=== PATIENT | female | born 1955 | race Caucasian/White ===

== ENCOUNTER 2017-02-07 08:40 | Emergency (ER) | payer MEDICAID ==
[~2017-02-07] VITALS: Wt 72.6 kg
[~2017-02-07 08:40] MED LIST: ABILIFY10 MG PO; ALBUTEROL2.5 MG/0.5 INH; ALLERGY10 MG PO; AMOXICILLIN500 MG PO; ANUSOL TP; ASCRIPTIN ENTER81 MG PO; BACTRIM DS 8001 TA1 PO; BACTROBAN2% TP; CATAFLAM50 MG PO; CLONAZEPAM2 MG PO; DEPAKOTE500 MG PO; DOCUSATE SODIUM1 TAB PO; DULE1ARO1 INH; HALOPERIDOL1 MG PO; KLONOPIN2 MG PO; LIPITOR40 MG PO; LISINOPRIL10 MG PO; LISINOPRIL40 MG PO; LOPRESSOR25 MG PO; LOVASTATIN40 MG PO; MULTIVITAMIN1 TA1 PO; NAPROXEN500 MG PO; NORFLEX100 MG PO; PREDNICOT20 MG PO; PROAIR HFA0.09 MG/AC INH; VISTARIL25 MG PO; VOLTAREN50 M1 PO; ZOFRAN ODT4 MG SL
[2017-02-07 09:44] LABS: BASO % 0.3 % (0.0-1.0); EOS % 0.3 % (1.0-4.0); HEMATOCRIT 40.3 % (37.0-47.0); IG # 0.1 10*3/uL (0.0-0.1); LYMPH # 1.3 10*3/uL (1.3-4.4); MEAN CORPUSCULAR HGB 30.9 pg (27.0-31.0); MEAN CORPUSCULAR HGB CONC 34.7 g/dl (33.0-37.0); MEAN PLATELET VOLUME 9.2 fl (9.6-12.3); MONO # 0.9 10*3/uL (0.1-1.0); MONO % 7.6 % (3.0-9.0); NEUT # 9.5 10*3/uL (2.3-7.9); NEUT % 80.4 % (47.0-73.0); PLATELET COUNT AUTOMATED 189 10*3/uL (130-400); RED BLOOD COUNT 4.53 10*6/uL (4.10-5.10); RED CELL DISTRI WIDTH 13.2 % (0-14.5); WHITE BLOOD COUNT 11.8 10*3/uL (4.8-10.8)
[2017-02-07 09:53] LABS: INTERNATIONAL NORM RATIO 1.1 (2.0-3.5); PROTHROMBIN TIME 11.6 SECONDS (9.0-12.4)
[2017-02-07 09:54] LABS: BILIRUBIN NEGATIVE (NEGATIVE); BLOOD TRACE-INTACT (NEGATIVE); CLARITY CLEAR (CLEAR); COLOR YELLOW (YELLOW); GLUCOSE NEGATIVE (NEGATIVE); KETONE NEGATIVE (NEGATIVE); LEUKO ESTERASE NEGATIVE (NEGATIVE); NITRITE NEGATIVE (NEGATIVE); PROTEIN NEGATIVE (NEGATIVE); SPECIFIC GRAVITY <= 1.005 (1.005-1.030); UROBILINOGEN 0.2 E.U./dl (0.2-1.0)
[2017-02-07 10:02] LABS: URINE AMPHETAMINES > 1000 (1000ng/ml); URINE BARBITURATES < 200 (200ng/ml); URINE COCAINE > 300 (300ng/ml)
[2017-02-07 10:03] LABS: ALKALINE PHOSPHATASE 117 U/L (45-117); BILIRUBIN, TOTAL 1.3 mg/dl (0.2-1.0); BUN 10 mg/dl (7-24); CARBON DIOXIDE 26 mmol/L (21-32); CHLORIDE 103 mmol/L (98-107); EST GLOM FILT AFRICAN AMERICAN 53 ml/min; GLUCOSE 108 mg/dL (65-99); MAGNESIUM 1.3 mg/dL (1.5-2.1); POTASSIUM 3.3 mmol/L (3.5-5.1); SGOT/AST 23 IU/L (3-35); SGPT/ALT 28 U/L (12-78); SODIUM 136 mmol/L (136-145); TOTAL PROTEIN 6.7 gm/dL (6.4-8.2)
[2017-02-07 10:04] LABS: TROPONIN I 0.021 ng/ml (<0.045)
[2017-02-07 10:35] LABS: EPITHELIAL CELLS 0-2; URINE REFLEX COMMENT NO (NO); WBC 0-2 wbc/hpf (0-5)
== END 2017-02-07 11:35 | disposition short-term general hospital (02) ==
LOC: ED 08:40
PROVIDERS: Nurse Practitioner Family
DX: A41.9 Sepsis, unspecified organism (principal); R65.21 Severe sepsis with septic shock; I63.9 Cerebral infarction, unspecified; J18.1 Lobar pneumonia, unspecified organism; E87.6 Hypokalemia; Z79.899 Other long term (current) drug therapy; J44.9 Chronic obstructive pulmonary disease, unspecified; J45.909 Unspecified asthma, uncomplicated; F17.200 Nicotine dependence, unspecified, uncomplicated